=== PATIENT | female | born 1985 | race Caucasian/White ===

== ENCOUNTER 2016-07-14 08:39 | Emergency (ER) | payer OTHER ==
[~2016-07-14] VITALS: Ht 175.3 cm; Wt 59.4 kg
[2016-07-14] MEDS ORDERED: PRENATA CHEWAB1 EACH PO (08:48)
--- NOTE | 2016-07-14 08:59 | Emergency Room Report ---
History of Present Illness General Chief Complaint: Complications Source: Patient Present Illness HPI Patient reports that in June she was found to be , soon after her diagnosis patient had a full menstrual cycle and had a miscarriage Soon after the patient was found to be again Her last beta Quant was fairly high In early July And the patient feels that approximately with the dates and the beta Quant that she would be approximately 5 weeks Back in June patient had a similar episode where she passed a small dark material Last night patient had an episode where she had a similar passed material And therefore was concern about possible miscarriage and presents to the ER Denies any abdominal pain denies any other rudy bleeding Denies any chest pain or shortness of breath patient has been previously to these episodes and does have a 2-year-old child Allergies: Coded Allergies: No Known Allergies (Unverified , 07/14/16) Patient History Past Medical History: see triage record Pertinent Family History: none Last Menstrual Period: 06/04/2016 Now: Yes : 3 Para: 1 Reviewed Nursing Documentation: PMH: Agreed, PSxH: Agreed Nursing Documentation-PMH Past Medical History: No Stated History Review of Systems All Other Systems: negative except mentioned in HPI Physical Exam Vital Signs Date Time Temp Pulse Resp B/P Pulse Ox O2 Delivery O2 Flow Rate FiO2 07/14/16 08:42 97.3 69 14 140/70 100 Room Air Sp02 EP Interpretation: reviewed, normal General Appearance: well appearing, no apparent distress Head: normocephalic, atraumatic Eyes: bilateral eye EOMI, bilateral eye PERRL ENT: hearing grossly normal, normal pharynx, TMs + canals normal, uvula midline Neck: full range of motion, supple, no meningismus, no bony tend Respiratory: lungs clear, normal breath sounds, no rhonchi, no respiratory distress, no retraction, no accessory muscle use Cardiovascular #1: normal peripheral pulses, regular rate, rhythm, no edema, no gallop, no JVD, no murmur Gastrointestinal: normal bowel sounds, non tender, soft, no mass, no organomegaly, non-distended, no guarding, no hernia, no pulsatile mass, no rebound Genitourinary: no CVA tenderness Musculoskeletal: normal inspection Neurologic: oriented x3, responsive, safe and vault mechanic III-XII nml as tested, motor strength/ tone normal, sensory intact Psychiatric: mood/affect normal Skin: normal color, no rash, warm/dry, palpation normal Lymphatic: normal inspection, no adenopathy Medical Decision Making Diagnostic Impression: Primary Impression: Threatened ER Course Patient's beta Quant has gone up to over 4000 Therefore ultrasound was obtained, no obvious signs of ectopic however very early gestation as noted Patient was provided with antibiotics for possible UTI as well however does appear to be likely contaminated And will have close outpatient followup Labs Test 07/14/16 08:45 07/14/16 09:00 Urine Color Pale yellow Urine Appearance Slightly cloudy Urine pH 7 (4.5-8.0) Urine Specific [place] 1.005 (1.005-1.035) Urine Protein Negative (NEGATIVE) Urine Glucose (UA) Negative (NEGATIVE) Urine Ketones Negative (NEGATIVE) Urine Occult Blood Negative (NEGATIVE) Urine Nitrite Negative (NEGATIVE) Urine Bilirubin Negative (NEGATIVE) Urine Urobilinogen Normal MG/DL (0.0-1.0) Urine Leukocyte Esterase 2+ (NEGATIVE) Urine RBC 0-2 /HPF (0 - 2) Urine WBC 2-4 /HPF (0 - 2) Urine Squamous Epithelial Cells Moderate /LPF (NONE/OCC) Urine Bacteria Few /HPF (NONE) Human Chorionic Gonadotropin, Quant 4457 mIU/mL CT/MRI/US Diagnostic Results CT/MRI/US Diagnostic Results : Impression Pelvic ultrasound: Refer to the report for full specifics, no obvious evidence of ectopic Last Vital Signs Date Time Temp Pulse Resp B/P Pulse Ox O2 Delivery O2 Flow Rate FiO2 07/14/16 08:42 97.3 69 14 140/70 100 Room Air Status: improved Disposition: HOME, SELF-CARE Condition: Improved Scripts Nitrofurantoin Monohyd/M-Cryst* (MACROBID 100 MG*) 100 Mg Capsule 100 MG ORAL EVERY 12 HOURS for 5 Days, CAP Prov: ALDO GARRETT D.O. 07/14/16 Additional Instructions: Patient is provided with the discharge instructions notified to follow up with primary doctor in the next 2-3 days otherwise return to the er with any worsening symptoms. Please note that this report is being documented using [employer] technology. This can lead to erroneous entry secondary to incorrect interpretation by the dictating instrument. ALDO GARRETT D.O. Jul 14, 2016 08:59
[2016-07-14 09:13] LABS: APPEARANCE,URINE SLIGHTLY CLOUDY; KETONES,URINE NEGATIVE (NEGATIVE); NITRITE,URINE NEGATIVE (NEGATIVE); PH,URINE 7 (4.5-8.0); PROTEIN,URINE NEGATIVE (NEGATIVE); UROBILINOGEN,URINE NORMAL MG/DL (0.0-1.0)
[2016-07-14 09:26] LABS: LEUKOCYTE ESTERASE ,URINE 2+ (NEGATIVE)
[2016-07-14 09:27] LABS: BACTERIA,URINE FEW /HPF; RBC,URINE 0-2 /HPF (0 - 2); SQUAMOUS EPITHELIAL CELL,UR MODERATE /LPF (NONE/OCC)
[2016-07-14] MEDS ORDERED: NITROFURANTOIN100 M2 ORAL (10:33)
[2016-07-14 10:57] VITALS: BP 131/68
--- NOTE | 2016-07-15 11:07 | Diagnostic Imaging Report ---
Indication: Pelvic pain, patient Technique: Present on transvaginal images Comparison: None Findings: Uterus measures 7.5 cm length by 4 cm AP. Within the endometrium, there is a small fluid structure with what appears to be a decidual reaction and a yolk sac. It is too small to date. There is a small hypoechoic area adjacent to it which likely represents a small subchorionic hemorrhage. This measures approximately 1.5 x 1 cm. No myometrial abnormalities left ovary measures 2.3 cm length. Right ovary measures 2.3 cm length. No adnexal mass. There is free fluid in the cul-de-sac Impression: Intrauterine gestational sac with a yolk sac, too small for accurate dating. Probable small subchorionic hemorrhage Free pelvic fluid, probably physiologic
== END 2016-07-14 11:02 | disposition home or self-care (01) ==
LOC: EMR 09:03
DX: O20.0 Threatened abortion (principal); Z3A.01 Less than 8 weeks gestation of pregnancy
CPT/HCPCS: 36415; 76801; 76830; 81003; 84702; 99284